=== PATIENT | female | born 2000 | race Two or more races ===

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

== ENCOUNTER 2020-05-20 08:18 | Outpatient (CLI) | payer OTHER | END 2020-05-20 08:24 | disposition home or self-care (01) | LOC: RAD 08:18 | PROVIDERS: ATTEND Chiropractor Sports Physician | DX: M46.02 Spinal enthesopathy, cervical region (principal); M46.06 Spinal enthesopathy, lumbar region ==

== ENCOUNTER 2021-03-31 12:50 | Outpatient (CLI) | payer OTHER | END 2021-03-31 12:51 | disposition home or self-care (01) | LOC: LAB 12:50 | PROVIDERS: ATTEND Emergency Medicine Pediatric Emergency Medicine | DX: R73.01 Impaired fasting glucose (principal); E66.8 Other obesity ==

== ENCOUNTER 2021-12-05 08:00 | Outpatient (CLI) | payer OTHER | END 2021-12-05 08:30 | disposition home or self-care (01) | LOC: PPH VACUNA 08:00 | PROVIDERS: ATTEND Emergency Medicine Pediatric Emergency Medicine | DX: Z23 Encounter for immunization (principal) ==

== ENCOUNTER 2022-08-02 08:00 | Outpatient (CLI) | payer OTHER | END 2022-08-02 08:05 | disposition home or self-care (01) | LOC: PPH VACUNA 08:00 | PROVIDERS: ATTEND Emergency Medicine Pediatric Emergency Medicine | DX: Z23 Encounter for immunization (principal) ==

== ENCOUNTER 2023-05-15 11:19 | Emergency (ER) | payer OTHER ==
[~2023-05-15] VITALS: Ht 175.3 cm; Wt 127.5 kg
== END 2023-05-15 16:56 | disposition home or self-care (01) ==
LOC: ER 11:19
DX: M25.551 Pain in right hip (principal); E03.8 Other specified hypothyroidism